=== PATIENT | male | born 1940 | race Caucasian/White ===

== ENCOUNTER 2018-05-08 09:51 | Day surgery (SDC) | payer OTHER ==
[~2018-05-08] VITALS: Ht 167.6 cm; Wt 83.9 kg
[~2018-05-08 09:51] MED LIST: ACETAMINOPHEN500 MG PO; ADVAIR 250/501 DISK IH; AMOXICILLIN500 MG PO; ANORO ELLIPTA1 EACH IH; ASPIRIN325 MG PO; BENZONATATE200 MG PO; CARDIZEM CD,CA180 MG PO; CRESTOR10 MG PO; DIAZEPAM2 MG PO; DONNATAL1 TABLET PO; ELIQUIS5 MG PO; FUROSEMIDE40 MG PO; GUAIFENESIN AC473 ML PO; K-DUR20 MEQ PO; KEPPRA250 MG PO; LASIX20 MG PO; LASIX40 MG PO; LEVETIRACETAM250 MG PO; LISINOPRIL10 MG PO; LOPRESSOR25 MG PO; METOPROLOL TART25 MG PO; MONTELUKAST SOD10 MG PO; NEXIUM20 MG PO; NITROSTAT0.4 MG SL; OMEPRAZOLE20 MG PO; POTASSIUM CHLO20 ME2 PO; PRILOSEC20 MG PO; PROVENTIL,2.5 MG/3 M IH; QUETIAPINE FUMA25 MG PO; SINGULAIR10 MG PO; SPIRIVA1 INHALATI IH; SYMBICORT60 INHALAT IH; TRAMADOL HCL50 MG PO; VENTOLIN HFA18 GM IH; VITAMIN D31000 UNI2 PO; ZETIA10 MG PO
[2018-05-08] MEDS ORDERED: LOPRESSOR25 MG PO (10:14)
[2018-05-08] MEDS ORDERED: NASONEX17 GM BOTH NARES (10:15)
[2018-05-08] MEDS ORDERED: PREDNISONE10 MG PO (10:16)
[2018-05-08 12:38] LABS: CARBOXY HGB 1.8 % (0-5); METHEMOGLOBIN 0.8 % (0-1.5); O2 SATURATION (CALCULATED) 68 % (95-99); PCO2 40 mm Hg (35-45); PO2 36 mm Hg (80-100); pH 7.35 (7.35-7.45)
[2018-05-08 12:39] LABS: BASE EXCESS -3.3 mEq/L (-3 to +3); BICARBONATE 22.1 mEq/L (22-26)
[2018-05-08 12:40] LABS: BASE EXCESS -10.5 mEq/L (-3 to +3); BICARBONATE 14.8 mEq/L (22-26); CARBOXY HGB 1.4 % (0-5); METHEMOGLOBIN 0.9 % (0-1.5); PCO2 30 mm Hg (35-45); PO2 35 mm Hg (80-100)
== END 2018-05-08 15:30 | disposition home or self-care (01) ==
LOC: CATH 09:51
PROVIDERS: Internal Medicine Cardiovascular Disease
PROC: 4A023N6 Measurement of Cardiac Sampling and Pressure, Right Heart, Percutaneous Approach (ICD-10-PCS; principal; 2018-05-08)
DX: I27.29 Other secondary pulmonary hypertension (principal); I48.1 Persistent atrial fibrillation; I25.10 Atherosclerotic heart disease of native coronary artery without angina pectoris; I35.1 Nonrheumatic aortic (valve) insufficiency; J44.9 Chronic obstructive pulmonary disease, unspecified; N28.9 Disorder of kidney and ureter, unspecified; E78.5 Hyperlipidemia, unspecified; Z79.01 Long term (current) use of anticoagulants; Z87.891 Personal history of nicotine dependence
CPT/HCPCS: 36600; 82803; C1769; C1894; J1644; J2250; J3010